=== PATIENT | male | born 2000 | race African-American/Black ===

== ENCOUNTER 2024-11-24 18:46 | Emergency (ER) | payer OTHER, SELFPAY ==
[~2024-11-24 18:46] MED LIST: Iopamidol 300 61% 100 ML VIAL FS ONE
[2024-11-24] MEDS ORDERED: Ondansetron PF 4 MG/2 ML Vial ONE (19:42)
[2024-11-24] MEDS ORDERED: Ketorolac Tromethamine 30 MG (1 mL) VIAL ONE (19:43)
[2024-11-24 20:23] LABS: #Basophils 0.03 10x3/uL (0.0-0.2); #Eosinophils Less than 0.03 10x3/uL (0.0-0.5); #Monocytes 0.93 10x3/uL (0.0-1.1); #Neutrophils 10.75 10x3/uL (1.5-8.4); %Basophils 0.2 % (0.0-2.0); %Eosinophils 0.1 % (0.0-6.0); %Lymphocytes 16.2 % (18.0-47.0); %Monocytes 6.6 % (0.0-10.0); %Neutrophils 76.6 % (40.0-75.0); Hematocrit 45.9 % (38.8-50.0); Hemoglobin 14.8 g/dL (13.5-17.5); Mean Corpuscular HGB CONC 32.2 g/dL (32.0-36.0); Mean Corpuscular Hemoglobin 27.4 pg (27.0-33.0); Mean Corpuscular Volume 84.8 fL (81.2-95.1); Mean Platelet Volume 10.7 fL (7.4-10.4); Platelet Count 295 10x3/uL (150-450); RBC Distribution Width 12.9 % (11.5-14.5); Red Blood Cell (RBC) Count 5.41 10x6/uL (4.32-5.72); White Blood Cell (WBC) Count 14.04 10x3/uL (3.5-10.5)
[2024-11-24 20:28] LABS: Bilirubin Neg (Negative); Blood, Urine Negative (Negative); Glucose, Urine (Dipstick) Normal (Negative); Ketone, Urine Negative (Negative); Leukocyte Negative (Negative); Nitrite Negative (Negative); Protein, Urine (Dipstick) 30 mg/dl (Neg-Trace); Specific Gravity, Urine 1.005 (1.005-1.030)
[2024-11-24 20:30] LABS: Clarity Clear (Clear)
[2024-11-24 20:35] LABS: CAUTI Indications for Culture Pelvic or flank pain; RBC/HPF None Seen HPF (0-3); Squamous Epithelial 0-3 HPF (0-3); WBC/HPF None Seen HPF (0-3)
[2024-11-24 20:36] LABS: Bacteria/HPF None Seen HPF (None Seen); Urine Culture Reflex No No
[2024-11-24 20:46] LABS: ALT (SGPT) 26 U/L (Less than 45); AST (SGOT) 23 U/L (11-34); Albumin 3.9 g/dL (3.1-4.5); Alkaline Phosphatase 78 U/L (40-110); Anion Gap 11 mmol/L (10-20); BUN (Urea Nitrogen) 11 mg/dL (8.9-20.6); Bilirubin, Total 0.8 mg/dL (0.3-1.2); CK (CPK) 253 U/L (30-200); Calc. Creatinine Clearance 0 mL/min (70-130); Calcium 9.6 mg/dL (7.8-10.44); Carbon Dioxide 26 mmol/L (22-29); Chloride 103 mmol/L (98-107); Estimated GFR 118; Globulin 3.4 g/dL (2.4-3.5); Glucose 93 mg/dL (70-105); Lipase 13 U/L (8-78); Magnesium 1.9 mg/dL (1.6-2.6); Protein, Total 7.3 g/dL (6.0-8.3); Sodium 136 mmol/L (136-145)
[2024-11-24 20:50] LABS: Troponin I Less than 0.010 ng/mL (< 0.028)
[2024-11-24] MEDS ORDERED: Morphine 4 MG/ML VIAL ONE (21:37)
== END 2024-11-24 22:04 | disposition home or self-care (01) ==
LOC: CSHERS 18:46
DX: B34.9 Viral infection, unspecified (principal); R10.31 Right lower quadrant pain
CPT/HCPCS: 71045; 74177; 80053; 81001; 82550; 83690; 83735; 84484; 85025; 87428; 93005; 96374; 96375; J1885; J2270; J2405; Q9967